=== PATIENT | female | born 1985 | race African-American/Black ===

== ENCOUNTER 2022-11-15 12:32 | Emergency (ER) | payer OTHER ==
[~2022-11-15] VITALS: Ht 162.6 cm; Wt 81.0 kg
[2022-11-15 12:35] VITALS: BP 126/85; PULSE 100; RESP 16; TEMP 98.1; O2SAT 98
== END 2022-11-15 14:30 | disposition home or self-care (01) ==
LOC: ER 12:32
DX: F10.129 Alcohol abuse with intoxication, unspecified (principal); Y90.0 Blood alcohol level of less than 20 mg/100 ml
CPT/HCPCS: 93005; 99283